=== PATIENT | female | born 1965 | race African-American/Black ===

== ENCOUNTER 2024-06-23 15:42 | Emergency (ER) | payer OTHER ==
[~2024-06-23] VITALS: Ht 172.7 cm; Wt 83.9 kg
[2024-06-23] MEDS ORDERED: ONDANSETRON 4 MG/2 ML VIAL ONE (17:23)
[2024-06-23] MEDS ORDERED: MORPHINE SULFATE 4 MG/1 ML DISP.SYRIN ONE (17:24)
[2024-06-23 17:26] LABS: *BILIRUBIN,URIN NEGATIVE (NEGATIVE); *BLOOD, URINE 2+ (NEGATIVE); *CLARITY,URINE CLEAR (CLEAR); *COLOR,URINE YELLOW (YELLOW); *KETONES,URINE 3+ (NEGATIVE); *PROTEIN,URINE NEGATIVE (NEGATIVE); *UROBILINOGEN,URINE 0.2 E.U./dl (NORMAL); LEUKOCYTE ESTERASE ,URINE 1+ (NEGATIVE); NITRITE, URINE NEGATIVE (NEGATIVE); UGLUCOSE NEGATIVE (NEGATIVE)
[2024-06-23 17:46] LABS: BASOPHILS % (AUTO) 0.1 % (0.0-2.0); HEMATOCRIT 34.3 % (31.2-41.9); HEMOGLOBIN 11.3 g/dL (10.9-14.3); LYMPHOCYTES # (AUTO) 0.4 K/uL (0.8-4.8); MEAN CORPUSCULAR HEMOGLOBIN 29.3 uug (24.7-32.8); MEAN CORPUSCULAR HGB CONC 33 g/dL (32.3-35.6); MONOCYTES # (AUTO) 0.3 K/uL (0.1-1.30); MONOCYTES % (AUTO) 3.9 % (0.0-11.0); NEUTROPHILS # (AUTO) 6.7 K/uL (1.8-8.9); PLATELET COUNT (AUTO) 225 K/uL (179-408); RED BLOOD CELL COUNT(AUTO) 3.86 MIL/uL (3.63-4.92); RED CELL DISTRIBUTION WIDTH 13.4 % (12.3-17.7); WHITE BLOOD COUNT (AUTO) 7.5 K/uL (3.8-11.8)
[2024-06-23] MEDS: ONDANSETRON 4 MG/2 ML VIAL IV ONE (17:49)
[2024-06-23] MEDS: MORPHINE SULFATE 2 MG/1 ML DISP.SYRIN IV ONE (17:49)
[2024-06-23 17:50] LABS: DIFFERENTIAL COMMENT 1
[2024-06-23] MEDS: IV NORMAL SALINE 1000 ML BAG IV ONE (17:50)
[2024-06-23 17:56] LABS: *URINE HCG, QUAL NEGATIVE (NEGATIVE)
[2024-06-23 17:57] LABS: ALBUMIN 3.6 g/dL (3.4-5.0); BILIRUBIN,DIRECT 0.1 mg/dL (0.0-0.2); BILIRUBIN,TOTAL 0.6 mg/dL (0.2-1.0); CALCIUM 10.6 mg/dL (8.5-10.1); CREATININE 0.9 mg/dL (0.6-1.3); POTASSIUM 4.9 mmol/L (3.5-5.1); TOTAL PROTEIN, SERUM 7.6 g/dL (6.4-8.2)
[2024-06-23 18:15] LABS: BACTERIA,URINE NONE SEEN /HPF (NONE SEEN); SQUAMOUS EPITHELIAL CELL,UR FEW /HPF (NONE SEEN); WBC,URINE NONE SEEN /HPF (0-3)
[2024-06-23] MEDS ORDERED: KETOROLAC TROMETHAMINE 30 MG INJ ONE (18:42)
[2024-06-23] MEDS: KETOROLAC TROMETHAMINE 30 MG INJ IVP ONE (18:53)
[2024-06-23] MEDS ORDERED: HYDR-4209 PO (20:12)
[2024-06-23] MEDS ORDERED: ONDA4TAB11 PO (20:12)
[2024-06-23] MEDS ORDERED: IBUP-1957 PO (20:12)
[2024-06-23 20:32] VITALS: BP 128/71; TEMP 98; O2SAT 100
== END 2024-06-23 20:34 | disposition home or self-care (01) ==
LOC: ER 15:42
DX: N13.5 Crossing vessel and stricture of ureter without hydronephrosis (principal); N20.1 Calculus of ureter; R10.9 Unspecified abdominal pain; Z87.442 Personal history of urinary calculi; Z90.49 Acquired absence of other specified parts of digestive tract
CPT/HCPCS: 99285; 74176; 96374; 96375; 96361; 80076; 80048; 81001; 84703; 85025; 36415; J1885; J2405; J2270; J7040; A4606; A4663